=== PATIENT | male | born 1960 | race Caucasian/White ===

== ENCOUNTER 2016-12-21 20:29 | Emergency (ER) | payer OTHER ==
--- NOTE | ~2016-12-21 | CR20 ---
[facility] A Service of [facility] & [facility] RADIOLOGY TEXT RESULTS PATIENT: ALICE BONNER JR LOCATION: [facility] : 60 UNIT #: [id number] AGE: [address]: Desiree Francisco SEX: M ORDER DR: [id number] [facility] [address] [place], [place] [address] [id number] E MR#: [id number] Acc #: [id number] NAME: ALICE BONNER JR : 1960 SEX: M STUDY DATE/TIME: 12/21/2016 22:37 UNIT: [facility] ROOM: STUDY DESCRIPTION: CR Ankle Min 3 Views Lt Attending Physician: Desiree Francisco Pa-C Referring Physician: Alejandrina Bryan A.P.R.N. Ordering Physician: Desiree Francisco Pa-C Primary Care Physician: Alejandrina Bryan A.P.R.N. MEDICAL IMAGING REPORT This report is preliminary unless electronic signature is present EXAM Left ankle 12/21 at 22:37 INDICATIONS Ankle pain today. No trauma. FINDINGS 3 views of the left ankle were obtained. Well corticated bone fragments below the medial malleolus are presumably related to remote trauma. No fracture or subluxation is identified. Soft tissues are unremarkable. There is a talar beak. IMPRESSION No acute findings in the ankle. There is evidence of old trauma about the medial malleolus. Dictated by... Brenden Pretty Jr., M.D. THIS IS AN ELECTRONICALLY VERIFIED REPORT Brenden Pretty Jr., M.D. at 12/22/2016 6:05 AM ZHOU/yamilex TD: 12/22/2016 01:41 JOB #: [id number] MEDICAL IMAGING REPORT Page 1 of 1 COPY
--- NOTE | ~2016-12-21 | US85 ---
[facility] A Service of [facility] & [facility] RADIOLOGY TEXT RESULTS PATIENT: ALICE BONNER JR LOCATION: [facility] : 60 UNIT #: [id number] AGE: [address]: Desiree Francisco SEX: M ORDER DR: [id number] [facility] [address] [place], [place] [address] [id number] E MR#: [id number] Acc #: [id number] NAME: ALICE BONNER JR : 1960 SEX: M STUDY DATE/TIME: 12/21/2016 21:28 UNIT: [facility] ROOM: STUDY DESCRIPTION: [facility] Attending Physician: Desiree Francisco Pa-C Referring Physician: Alejandrina Bryan A.P.R.N. Ordering Physician: Desiree Francisco Pa-C Primary Care Physician: Alejandrina Bryan A.P.R.N. MEDICAL IMAGING REPORT This report is preliminary unless electronic signature is present EXAM Lower extremity ultrasound for DVT on the left, 12/21/2016 INDICATION 56-year-old male with history of DVT and left ankle pain since this morning. Swelling since last night, diabetes, hypertension, hyperlipidemia, long drive over the weekend. Currently on blood thinners secondary to a history of DVT. TECHNIQUE Hogan-scale, color Doppler and spectral analysis of the left lower extremity was performed. No comparisons. FINDINGS The examination is negative. There is no DVT in the left lower extremity. IMPRESSION Negative study. No DVT in the left lower extremity. Dictated by... Olman Arriaza M.D. THIS IS AN ELECTRONICALLY VERIFIED REPORT Olman Arriaza M.D. at 12/22/2016 11:42 AM SUAD/augusto TD: 12/22/2016 00:54 JOB #: [id number] MEDICAL IMAGING REPORT Page 1 of 1 COPY
[~2016-12-21 20:29] MED LIST: ACIPHEX20 MG PO; ALBUTEROL17 GM INH; ALLEGRA PO; AMITRYPTYLINE; ASPIRIN PO; BETAMETHASONE D45 GM EXT; BUMEX1 MG PO; CALCARB 600 W-V1 TAB PO; CALCIUM + VITAM1 TAB PO; CALCIUM 500 + D1 TAB PO; CARAFATE1 G PO; CIPRO PO; CLARITIN10 MG; COREG PO; COREG6.25 MG PO; CORRECTOL5 MG; DIAZEPAM PO; DULCOLAX PO; DULCOLAX5 MG PO; ECOTRIN81 M1 PO; FLOMAX0.4 M1 PO; FLOMAX0.4 MG PO; GENOTROPIN SQ; HUMALOG100 U/M1 SQ; HUMALOG100 U/ML; HYDROCODON-ACE1 EAC5 PO; HYDROXYZINE HCL25 M1 PO; INSULIN PUMP; LAC-HYDRIN225 GM TOP; LASIX20 MG PO; LIPITOR; LIPITOR PO; LORTAB 7.5-5001 TAB; LORTAB PO; LOSARTAN POTASS50 MG PO; LOTRIMIN30 GM TOP; LOVAZA PO; LOVAZA1 G PO; LYRICA PO; LYRICA50 MG PO; MICRO-K10 MEQ PO; MOBIC PO; NEURONTIN; NEXIUM PO; NORCO 10/325 TA1 TAB PO; NORCO 7.5-3251 EACH PO; NOVOLOG100 U/ML SUBQ; PLAVIX PO; PROTONIX PO; PYRIDIUM100 MG PO; REGLAN PO; REGLAN10 MG PO; SINGULAIR PO; SYMLIN SUBQ; TEMAZEPAM PO; TEMAZEPAM30 MG PO; TERBINAFINE PO; TRAMADOL HCL50 M1 PO; TRICOR PO; TRICOR145 MG PO; TYLOX 5/500 CAP1 CAP PO; TYLOX1 CAP 5/50 PO; ULTRAM PO; VALIUM10 MG PO; VITAMIN D250000 UNIT PO; XYZAL PO; XYZAL2.5 MG/5 M PO; XYZAL5 MG PO; ZANAFLEX PO; ZANAFLEX4 M1 PO; ZANTAC PO; ZOCOR PO; ZOCOR80 MG PO; [UNRECOGNIZED DRUG - OTHER]; [UNRECOGNIZED DRUG - OTHER]; [UNRECOGNIZED DRUG - OTHER] TP
== END 2016-12-21 23:21 | disposition home or self-care (01) ==
LOC: CFTX 20:29
DX: M25.572 Pain in left ankle and joints of left foot (principal); M79.89 Other specified soft tissue disorders; I25.2 Old myocardial infarction; E11.9 Type 2 diabetes mellitus without complications; I10 Essential (primary) hypertension; F41.9 Anxiety disorder, unspecified; Z90.89 Acquired absence of other organs; Z88.0 Allergy status to penicillin; Z88.5 Allergy status to narcotic agent; Z88.1 Allergy status to other antibiotic agents; Z88.8 Allergy status to other drugs, medicaments and biological substances
CPT/HCPCS: 29540; 73610; 93971; 99284

== ENCOUNTER 2017-01-13 17:35 | Emergency (ER) | payer OTHER ==
--- NOTE | ~2017-01-13 | EKG ---
PATIENT: ALICE BONNER UNIT #: [id number] Ventricular Rate: 87 BPM Atrial Rate: 87 BPM P-R Interval: 194 ms QRS Duration: 94 ms Q-T Interval: 354 ms QTC Calculation(Bezet): 425 ms P [place]: 37 degrees Calculated R [place]: 3 degrees Calculated T [place]: 60 degrees Diagnosis Line: Normal sinus rhythm Diagnosis Line: Normal ECG Diagnosis Line: When compared with ECG of 25-APR-2014 00:25, Diagnosis Line: Questionable change in QRS axis Diagnosis Line: Nonspecific T wave abnormality now evident in Diagnosis Line: Anterior leads Diagnosis Line: Confirmed by WAN HERBERT MD ([id number]) on 01/17/2017 Diagnosis Line: 3:50:50 PM INTERPRETING MD: KEON AVILA
--- NOTE | ~2017-01-13 | CR63 ---
[facility] A Service of [facility] & [facility] RADIOLOGY TEXT RESULTS PATIENT: ALICE BONNER JR LOCATION: [facility] : 60 UNIT #: [id number] AGE: [address]: ALICE MCNULTY SEX: M ORDER DR: [id number] [facility] [address] [place], [place] [address] [id number] E MR#: [id number] Acc #: [id number] NAME: ALICE BONNER JR : 1960 SEX: M STUDY DATE/TIME: 01/13/2017 18:15 UNIT: [facility] ROOM: STUDY DESCRIPTION: CR Chest 2 View Attending Physician: Alice Mcnulty Aprn Ordering Physician: Alice Mcnulty Aprn Primary Care Physician: Alejandrina Bryan A.P.R.N. MEDICAL IMAGING REPORT This report is preliminary unless electronic signature is present EXAM Chest x-ray. DATE OF EXAM 01/13/2017 INDICATIONS Chest pain and cough and shortness of air for 2 days with ear pain. History of hypertension. FINDINGS 2 views of the chest compared to 12/04/2009. Cardiac and mediastinal contours are normal. Mild degree of infiltrate or atelectasis noted at the left base. Right lung is clear. There is no pneumothorax. IMPRESSION Mild left base infiltrate or atelectasis, otherwise, negative chest. Dictated by... Brenden Pretty Jr., M.D. THIS IS AN ELECTRONICALLY VERIFIED REPORT Brenden Pretty Jr., M.D. at 01/13/2017 11:04 PM ZHOU/nataly TD: 01/13/2017 20:07 JOB #: [id number] MEDICAL IMAGING REPORT Page 1 of 1 COPY
== END 2017-01-13 19:41 | disposition home or self-care (01) ==
LOC: CFTX 17:35
DX: R05 Cough (principal); R09.89 Other specified symptoms and signs involving the circulatory and respiratory systems; J02.9 Acute pharyngitis, unspecified; R07.9 Chest pain, unspecified; I25.2 Old myocardial infarction; I10 Essential (primary) hypertension; E11.9 Type 2 diabetes mellitus without complications; J45.909 Unspecified asthma, uncomplicated; F17.220 Nicotine dependence, chewing tobacco, uncomplicated
CPT/HCPCS: 71020; 87651; 93005; 94640; 99284